=== PATIENT | female | born 1970 | race Caucasian/White ===

== ENCOUNTER 2018-01-17 09:03 | Day surgery (SDC) | payer BC ==
[2018-01-13 16:17] LABS: BASOPHILS % (AUTO) 0.3 % (0-1); EOSINOPHILS # (AUTO) 0.1 X10'3 (0-0.9); EOSINOPHILS % (AUTO) 1.6 % (0-6); LYMPHOCYTES # (AUTO) 1.3 X10'3 (1.1-4.8); LYMPHOCYTES % (AUTO) 17.4 % (21-51); MEAN CORPUSCULAR HEMOGLOBIN 32.6 PG (27.0-31.0); MEAN CORPUSCULAR HGB CONC 34.3 % (33.0-36.5); MEAN CORPUSCULAR VOLUME 95.1 FL (78-98); MEAN PLATELET VOLUME 7.2 FL (7.4-10.4); MONOCYTES # (AUTO) 0.2 X10'3 (0-0.9); MONOCYTES % (AUTO) 2.5 % (2-12); NEUTROPHILS # (AUTO) 5.9 X10'3 (1.8-7.7); NEUTROPHILS % (AUTO) 78.2 % (42-75); PRE OP HEMATOCRIT 37.2 % (35.0-45.0); PRE OP HEMOGLOBIN 12.8 g/dL (12.0-16.0); PRE OP PLATELET COUNT 267 X10'3 (140-440); RED BLOOD COUNT 3.91 X10'6 (4.20-5.60); RED CELL DISTRIBUTION WIDTH 12.6 % (11.5-14.5)
[2018-01-13 16:32] LABS: ALBUMIN 3.8 G/DL (3.4-5.0); ALBUMIN/GLOBULIN RATIO 1.2 (1.1-1.5); ALKALINE PHOSPHATASE 66 IU/L (46-116); BLOOD UREA NITROGEN 6 MG/DL (7-18); BUN/CREATININE RATIO 7.9 (6.6-38.0); CALCIUM 8.4 MG/DL (8.5-10.1); CHLORIDE 101 MMOL/L (99-107); CREATININE 0.76 MG/DL (0.40-0.90); PRE OP ALT 32 U/L (30-65); PRE OP ANION GAP 9 (8-16); PRE OP AST 28 U/L (10-37); PRE OP BILIRUB, TOTAL 0.8 MG/DL (0.0-1.0); PRE OP GLUCOSE 94 MG/DL (70-104); PRE OP POTASSIUM 4.1 MMOL/L (3.4-5.1); PRE OP SODIUM 137 MMOL/L (135-145); TOTAL CARBON DIOXIDE 27.1 MMOL/L (24-32); eGFR 81 ML/MIN
[2018-01-13 16:54] LABS: HCG SERUM QL NEGATIVE
[2018-01-13 16:56] LABS: PRE OP INR 1.1 INR; PRE OP PROTIME 10.8 SECONDS (9.0-12.0)
[~2018-01-17] VITALS: Ht 162.6 cm; Wt 58.0 kg
[2018-01-17] VITALS (36 sets, daily range): BP systolic 98–135; BP diastolic 65–98
[~2018-01-17 09:03] MED LIST: LIDOcaine 1% (10mg/ml) 2ml vial ONE; ZOLP10TA5 PO; ceFOXitin 2 GM ADDvantage bag 100 ML IV ONE; famotidine 20mg tablet PO ONE
[2018-01-17] MEDS: ringers solution, lacted 1,000 ML IV SCH ×3 (09:30→13:19)
[2018-01-17] MEDS ORDERED: morphine 10mg/ml inj. ONE (10:04)
[2018-01-17] MEDS ORDERED: clindamycin phosphate 40gm vag cream ONE ×2 (10:04→22:25)
[2018-01-17] MEDS ORDERED: LIDOcaine 1% 30ml preserv. free vial ONE (10:05)
[2018-01-17] MEDS ORDERED: BUPIVAcaine/PF 2.5mg/ml (0.25%) 10ml vial ONE (10:05)
[2018-01-17] MEDS ORDERED: vasoPRESSIN 20 units/ml inj. ONE ×2 (10:05→21:56)
[2018-01-17] MEDS ORDERED: glycopyrrolate 0.2mg/ml inj ONE (10:42)
[2018-01-17] MEDS ORDERED: sevoflurane 250ml liquid IH ONE (10:42)
[2018-01-17] MEDS ORDERED: neostigmine methylsulfate 1 MG/ML 10ml vial ONE (10:42)
[2018-01-17] MEDS ORDERED: fentaNYL/PF 50MCG/1 ML 2ML syringe ONE ×3 (10:45→21:41)
[2018-01-17] MEDS ORDERED: LIDOcaine 2% (20mg/ml) 5ml vial ONE ×2 (10:46→21:42)
[2018-01-17] MEDS ORDERED: ondansetron/PF 4mg/2ml inj ONE (10:46)
[2018-01-17] MEDS ORDERED: midazolam 2 mg/2 ml injection ONE ×2 (10:46→21:42)
[2018-01-17] MEDS ORDERED: dexamethasone sod phosphate 4mg/ml inj. ONE (10:46)
[2018-01-17] MEDS ORDERED: propofol inj 20 ML IV ONE ×2 (10:46→21:42)
[2018-01-17] MEDS ORDERED: rocuronium 10mg/ml inj IV ONE (11:03)
[2018-01-17] MEDS ORDERED: ringers solution, lacted 1,000 ML IV SCH ×2 (11:18→21:13)
[2018-01-17] MEDS ORDERED: hydrALAZINE 20mg/ml inj. IV PRN ×2 (11:20→21:15)
[2018-01-17] MEDS ORDERED: labetalol 20mg/4ml (5mg/ml) syringe IV PRN ×2 (11:20→21:15)
[2018-01-17] MEDS ORDERED: morphine 4 MG/ML inj SYRINge IV PRN ×2 (11:20→21:15)
[2018-01-17] MEDS ORDERED: meperidine/PF 25mg/ml syringe IV PRN (11:20)
[2018-01-17] MEDS ORDERED: ondansetron/PF 4mg/2ml inj IV PRN ×3 (11:20→21:15)
[2018-01-17] MEDS ORDERED: CADD PCA waste documentation MC PRN (13:10)
[2018-01-17] MEDS ORDERED: magnesium hydroxide 30ml (MOM) UD suspension PO PRN (13:10)
[2018-01-17] MEDS ORDERED: HYDROcodone/acetaminophen 5mg/325mg tablet PO PRN (13:10)
[2018-01-17] MEDS ORDERED: temazepam 15mg capsule PO PRN (13:10)
[2018-01-17] MEDS ORDERED: diphenhydrAMINE 50 mg/ml inj IV PRN (13:10)
[2018-01-17] MEDS ORDERED: ketorolac trometh. 30mg/ml inj. IV PRN (13:10)
[2018-01-17] MEDS ORDERED: naloxone 0.4 mg/ml inj IV PRN (13:10)
[2018-01-17] MEDS ORDERED: normal saline 500ml IV soln 500 ML IV PRN (13:10)
[2018-01-17] MEDS: meperidine/PF 25mg/ml syringe IV PRN ×2 (13:18→13:24)
[2018-01-17] MEDS: morphine 4 MG/ML inj SYRINge IV PRN ×4 (13:51→23:12)
[2018-01-17] MEDS: HYDROmorphone/NS 1 mg/ml CADD 50 ML IV SCH ×5 (14:14→23:00)
[2018-01-17] MEDS: simethicone 80mg chew tab PO SCH (17:20)
[2018-01-17] MEDS: docusate sod 100mg capsule PO SCH (19:36)
[2018-01-17] MEDS ORDERED: fentaNYL/PF 50MCG/1 ML 2ML syringe IV PRN ×2 (21:15)
[2018-01-18] VITALS (9 sets, daily range): BP systolic 76–124; BP diastolic 47–85
[2018-01-18] MEDS: HYDROmorphone/NS 1 mg/ml CADD 50 ML IV SCH ×5 (00:47→09:00)
[2018-01-18] MEDS: ringers solution, lacted 1,000 ML IV SCH ×3 (02:00→13:09)
[2018-01-18 05:48] LABS: BASOPHILS % (AUTO) 0.2 % (0-1); EOSINOPHILS # (AUTO) 0.1 X10'3 (0-0.9); HEMATOCRIT 27.9 % (35.0-45.0); HEMOGLOBIN 9.4 g/dl (12.0-16.0); LYMPHOCYTES # (AUTO) 1.4 X10'3 (1.1-4.8); LYMPHOCYTES % (AUTO) 19.6 % (21-51); MEAN CORPUSCULAR HEMOGLOBIN 32.4 PG (27.0-31.0); MEAN CORPUSCULAR HGB CONC 33.9 % (33.0-36.5); MEAN CORPUSCULAR VOLUME 95.5 FL (78-98); MEAN PLATELET VOLUME 7.7 FL (7.4-10.4); MONOCYTES # (AUTO) 0.5 X10'3 (0-0.9); MONOCYTES % (AUTO) 7.8 % (2-12); NEUTROPHILS % (AUTO) 71.4 % (42-75); PLATELET COUNT 224 X10'3 (140-440); RED BLOOD COUNT 2.92 X10'6 (4.20-5.60); RED CELL DISTRIBUTION WIDTH 12.7 % (11.5-14.5)
[2018-01-18] MEDS: simethicone 80mg chew tab PO SCH ×2 (07:13→12:43)
[2018-01-18] MEDS: docusate sod 100mg capsule PO SCH (07:13)
[2018-01-18] MEDS: HYDROcodone/acetaminophen 5mg/325mg tablet PO PRN ×2 (12:43→16:27)
== END 2018-01-18 17:46 | disposition home or self-care (01) ==
LOC: PAS 09:03 → SUR 3N 13:09 → PAS 01-18 17:46
PROVIDERS: ATTEND Specialist
DX: D25.1 Intramural leiomyoma of uterus (principal); D25.0 Submucous leiomyoma of uterus; N80.0 Endometriosis of uterus; N88.8 Other specified noninflammatory disorders of cervix uteri; N72 Inflammatory disease of cervix uteri; N89.8 Other specified noninflammatory disorders of vagina; N81.11 Cystocele, midline; N81.5 Vaginal enterocele; N39.46 Mixed incontinence; K66.0 Peritoneal adhesions (postprocedural) (postinfection); N93.8 Other specified abnormal uterine and vaginal bleeding; N99.820 Postprocedural hemorrhage of a genitourinary system organ or structure following a genitourinary system procedure; Z79.891 Long term (current) use of opiate analgesic; Z90.89 Acquired absence of other organs; Z72.89 Other problems related to lifestyle; Z79.899 Other long term (current) drug therapy
CPT/HCPCS: 13160; 36415; 57240; 57283; 57288; 58552; 80053; 84703; 85025; 85610; 85730; 86885; 86900; 86901; A6255; C1771; J0690; J0694; J1100; J1170; J1885; J2001; J2175; J2250; J2270; J2405; J2704; J2710; J3010; J3490; J7120; A4315; A4355; A6250; A7000; G0378; J7030